=== PATIENT | female | born 1940 | race Caucasian/White ===

== ENCOUNTER → 2019-02-13 | Outpatient (CLI) | payer MEDICARE, BC ==
--- NOTE | 2019-02-13 09:18 | Diagnostic Imaging Report ---
EXAMINATION: MRI of the brain. MR angiogram of the [place] [facility] [place] without contrast CLINICAL HISTORY: Transient cerebral ischemia, left eye floaters. COMPARISON: None available TECHNIQUE: Brain MRI: Sagittal T2; axial DWI, T2, FLAIR, T1-IR, T2 gradient echo; coronal FLAIR. Brain MRA: 3D TOF images were obtained of the brain. MIP images of the arteries were isolated into anterior-posterior groups . The head source images, reformatted axial and coronal images, and client relations representative projections of the MIP images through 180 degrees of rotation and tumbling of the brain were reviewed. FINDINGS: MRI OF THE BRAIN: Parenchyma: Scattered and moderate confluent periventricular, dominguez radiata, centrum semiovale, internal and external capsules, and central antonia T2 and FLAIR hyperintensities, which are nonspecific but most likely related to chronic microvascular ischemic changes. Mass: None. Hemorrhage: None. Hydrocephalus: Normal ventricles. No hydrocephalus. Sella: No gross pituitary mass or empty sella. Foramen magnum: No Chiari malformation or mass. No evidence of intracranial hypotension. No inflammation of the joints at C1 or C2. Major arteries: Normal flow voids. Dural sinuses: Normal flow voids. No abnormal compression or distention. Extra-axial spaces: No abnormal enhancement . Sinuses/mastoids: No significant inflammatory disease. Orbits: No gross abnormality. No enlargement of the superior ophthalmic veins. Skull: No focal lesions. Grossly normal temporomandibular joints. 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 MRA OF THE [place] : The distal internal carotid, distal vertebral, basilar, and cerebral arteries are patent. No significant stenosis, occlusion, aneurysm, or arteriovenous malformation is seen. 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 IMPRESSION: Brain MRI: 1. No acute infarcts. 2. Moderate chronic white matter chronic microvascular disease changes. 3. Incidentally noted well-circumscribed nodules in the superficial lobe of the right parotid gland. An ENT evaluation is recommended. MR angiogram: Normal MR angiography of the [place], particularly no large vessel occlusion or significant stenosis is seen. Signed by: Dr. Gracy Buchanan M.D. on 02/13/2019 9:15 AM
--- NOTE | 2019-02-13 09:18 | Diagnostic Imaging Report ---
EXAMINATION: MRI of the brain. MR angiogram of the the [place] without contrast CLINICAL HISTORY: Transient cerebral ischemia, left eye floaters. COMPARISON: None available TECHNIQUE: Brain MRI: Sagittal T2; axial DWI, T2, FLAIR, T1-IR, T2 gradient echo; coronal FLAIR. Brain MRA: 3D TOF images were obtained of the brain. MIP images of the arteries were isolated into anterior-posterior groups . The head source images, reformatted axial and coronal images, and payroll representative projections of the MIP images through 180 degrees of rotation and tumbling of the brain were reviewed. FINDINGS: MRI OF THE BRAIN: Parenchyma: Scattered and moderate confluent periventricular, dominguez radiata, centrum semiovale, internal and external capsules, and central antonia T2 and FLAIR hyperintensities, which are nonspecific but most likely related to chronic microvascular ischemic changes. Mass: None. Hemorrhage: None. Hydrocephalus: Normal ventricles. No hydrocephalus. Sella: No gross pituitary mass or empty sella. Foramen magnum: No Chiari malformation or mass. No evidence of intracranial hypotension. No inflammation of the joints at C1 or C2. Major arteries: Normal flow voids. Dural sinuses: Normal flow voids. No abnormal compression or distention. Extra-axial spaces: No abnormal enhancement . Sinuses/mastoids: No significant inflammatory disease. Orbits: No gross abnormality. No enlargement of the superior ophthalmic veins. Skull: No focal lesions. Grossly normal temporomandibular joints. 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 MRA OF THE [place] : The distal internal carotid, distal vertebral, basilar, and cerebral arteries are patent. No significant stenosis, occlusion, aneurysm, or arteriovenous malformation is seen. 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 IMPRESSION: Brain MRI: 1. No acute infarcts. 2. Moderate chronic white matter chronic microvascular disease changes. 3. Incidentally noted well-circumscribed nodules in the superficial lobe of the right parotid gland. An ENT evaluation is recommended. MR angiogram: Normal MR angiography of the the [place], particularly no large vessel occlusion or significant stenosis is seen. Signed by: Dr. Gracy Buchanan M.D. on 02/13/2019 9:15 AM
== END ==
LOC: MRI 07:28
PROVIDERS: ATTEND Internal Medicine Cardiovascular Disease
DX: G45.9 Transient cerebral ischemic attack, unspecified (principal); R22.0 Localized swelling, mass and lump, head; H43.392 Other vitreous opacities, left eye
CPT/HCPCS: 70544; 70551

== ENCOUNTER → 2020-10-05 | Outpatient (CLI) | payer MEDICARE, BC ==
[~2020-10-05] MED LIST: IOPAMIDOL 370 MG/ML 200 ML INFUS..BTL INJ ONE; SODIUM CHLORIDE 0.9% 50ML 50 ML ONE
== END ==
LOC: CT 14:38
PROVIDERS: ATTEND Internal Medicine Cardiovascular Disease
DX: I25.10 Atherosclerotic heart disease of native coronary artery without angina pectoris (principal)
CPT/HCPCS: 70496; 70498; Q9967